=== PATIENT | female | born 1965 | race Caucasian/White ===

== ENCOUNTER 2020-01-06 00:18 | Inpatient (IN) | payer MEDICARE ==
[2020-01-06] MEDS ORDERED: NALOXONE HCL INJ 2 MG/2 ML DISP.SYRIN ONE (00:22)
[2020-01-06] MEDS ORDERED: NALOXONE HCL INJ/PF 0.4 MG/1 ML SDV IV ONE (00:40)
[2020-01-06] MEDS ORDERED: LEVETIRACETAM 1000 MG/NACL-ISO 1,000 MG/100 ML RTUPB IV ONE (00:41)
[2020-01-06] MEDS ORDERED: NORMAL SALINE 1000 ML 1,000 ML IV ONE ×2 (00:44→02:52)
[2020-01-06] MEDS ORDERED: DEXTROSE 5%-WATER 250 ML with NOREPINEPHRINE BITARTRATE 4 MG IV PRN ×2 (01:41)
--- NOTE | 2020-01-06 01:45 | ER Document Report ---
Entered by YANICK GUADALUPE SCRIBE 01/06/20 0035 Acting as scribe for:PRATIK DIAZ IV, MD ED General - General Chief Complaint: Altered Mental Status Stated Complaint: ALTERED MENTAL STATUS Mode of Arrival: Medic Information source: Patient, Emergency Med Personnel Notes: This 54 year old female patient brought in by EMS presents to the ED today with complaints of altered mental status and unresponsiveness that occurred x45 minutes prior to arrival. EMS reports that the patient's found the patient unresponsive on the toilet and upon their arrival, the patient was on the couch pale and diaphoretic. EMS states that the patient initially had respirations of 8, heart rate in the 60s, and that they were unable to palpate a blood pressure. EMS reports that they administered 6 mcg Levophed initially, then increased it to 10 mcg x5 minutes prior to arrival. EMS reports incontin ence of bladder and bowel, slurred speech, and sluggish pupils. EMS state that the patient's was a poor historian and noted that the patient had a "kidney disorder". EMS reports that the patient took her nighttime medications as well as her blood pressure medications. Patient had x3 full bottles of Keppra in a bag of medications, one of them was filled in May 2019. Patient states that she missed a couple of doses of Keppra. Patient does report a history of seizures with the last one taking place x1-2 years ago. Patient also reports diarrhea for the past x2 days. Patient denies any recent travel, recent illness, or exposure to anyone suspected of COVID-19. TRAVEL OUTSIDE OF THE [place] IN LAST 30 DAYS: No - Related Data Allergies/Adverse Reactions: No Known Allergies Allergy (Unverified 01/06/20 01:39) Home Medications: keppra, donepezil, pravastatin, omeprazole, asa, lisinopril, carvedilol, clonazepam, zofran, metformin Past Medical History - General Information source: Patient - Social History Smoking Status: Current Every Day Smoker Cigarette use (# per day): Yes Chew tobacco use (# tins/day): No Smoking Education Provided: No Family History: Reviewed & Not Pertinent Patient has suicidal ideation: No Patient has homicidal ideation: No - Medical History Medical History: Other - Back fx - Past Medical History Cardiac Medical History: Reports: Hx Hypercholesterolemia, Hx Hypertension Neurological Medical History: Reports: Hx Seizures Endocrine Medical History: Reports: Hx Diabetes Mellitus Type 2 Renal/ Medical History: Reports: Hx Renal Insufficiency - right kidney Review of Systems - Review of Systems Constitutional: See HPI. denies: Fever EENT: No symptoms reported Cardiovascular: No symptoms reported Respiratory: No symptoms reported Gastrointestinal: See HPI, Diarrhea, Fecal incontinence Genitourinary: See HPI, Incontinence Female Genitourinary: No symptoms reported Musculoskeletal: No symptoms reported Skin: No symptoms reported Hematologic/Lymphatic: No symptoms reported Neurological/Psychological: See HPI, Speech impairment - Slurred speech, Other - Altered mental status -: Yes All other systems reviewed and negative Physical Exam - Vital signs Vitals: Resp 16 01/06/20 00:19 - General General appearance: Alert - HEENT Head: Normocephalic, Atraumatic Eyes: Normal Pupils: Pinpoint - Respiratory Respiratory status: No respiratory distress Chest status: Nontender Breath sounds: Normal Chest palpation: Normal - Cardiovascular Rhythm: Regular Heart sounds: Normal auscultation Murmur: No - Abdominal Inspection: Normal Distension: No distension Bowel sounds: Normal Tenderness: Nontender - Abdomen soft Organomegaly: No organomegaly - Back Back: Normal, Nontender - Extremities General upper extremity: Normal inspection General lower extremity: Normal inspection - Neurological Neuro grossly intact: Yes Speech: Other - Slurred - Psychological Associated symptoms: Normal affect, Normal mood - Skin Skin Temperature: Warm Skin Moisture: Dry Skin Color: Normal Course - Re-evaluation Re-evalutation: 01/06/20 05:20 Results of ED MSE discussed with patient. All questions were answered. - Vital Signs Vital signs: Temp Pulse Resp BP Pulse Ox 97.3 F 99 16 132/84 H 98 01/06/20 01:00 01/06/20 00:27 01/06/20 02:21 01/06/20 02:21 01/06/20 02:21 - Laboratory Result Diagrams: 01/06/20 01:00 01/06/20 01:00 Laboratory results interpreted by me: 01/06/20 01/06/20 01/06/20 00:36 00:57 01:00 RDW 14.5 H Plt Count 130 L Sodium BUN Glucose POC Glucose 147 H Lactic Acid 2.9 H Total Bilirubin AST Alkaline Phosphatase Urine Protein Urine Blood Urine Nitrite (Reflex) Urine Urobilinogen Leukocyte Esterase Rfl 01/06/20 01/06/20 01:00 01:26 RDW Plt Count Sodium 135.3 L BUN 4 L Glucose 137 H POC Glucose Lactic Acid Total Bilirubin 2.1 H AST 41 H Alkaline Phosphatase 160 H Urine Protein 100 H Urine Blood MODERATE H Urine Nitrite (Reflex) POSITIVE H Urine Urobilinogen 4.0 H Leukocyte Esterase Rfl SMALL H - Diagnostic Test Radiology reviewed: Reports reviewed - EKG Interpretation by Me Additional EKG results interpreted by me: 01/06/20 05:20 EKG obtained on 01/06/2020 at 0100 hrs. was interpreted by this MD. Findings: Sinus rhythm, rate 78, normal axis, P waves proceed QRS complexes, QRS complexes appear narrow, there are no obviously visible patterns of ST segment elevation or depression present to suggest acute myocardial ischemia or infarction. Impression: Sinus rhythm with nonspecific ST segments. - Consults dr. yayo garcia Time consulted: 05:20 - dr. garcia accepted pt for admission Reason for consultation: 01/06/20 05:22 colitis, hypotension Consulted provider: will see as inpatient Critical Care Note - Critical Care Note Total time excluding time spent on procedures (mins): 120 Discharge - Discharge Clinical Impression: Acute colitis Condition: Good Disposition: ADMITTED INPATIENT Admitting Provider: Horace (Hospitalist) Unit Admitted: Telemetry I personally performed the services described in the documentation, reviewed and edited the documentation which was dictated to the scribe in my presence, and it accurately records my words and actions.
[2020-01-06 01:49] LABS: APPEARANCE,URINE SLIGHTLY-CLOUDY; BILIRUBIN,URINE NEGATIVE (NEGATIVE); COLOR,URINE AMBER; GLUCOSE, URINE NEGATIVE (NEGATIVE); KETONES,URINE NEGATIVE (NEGATIVE); PROTEIN,URINE 100 mg/dL (NEGATIVE); URINE SPECIFIC GRAVITY 1.015
[2020-01-06 01:55] LABS: URINE AMPHETAMINES SCREEN NEGATIVE; URINE BARBITURATES SCREEN NEGATIVE; URINE BENZODIAZEPINES SCREEN NEGATIVE; URINE COCAINE SCREEN NEGATIVE; URINE METHADONE SCREEN NEGATIVE; URINE PHENCYCLIDINE SCREEN NEGATIVE
[2020-01-06 02:00] LABS: URINE MARIJUANA (THC) SCREEN NEGATIVE
--- NOTE | 2020-01-06 02:16 | RADIOLOGY REPORT (SQ) ---
EXAM DESCRIPTION: CT HEAD WITHOUT IV CONTRAST COMPLETED DATE/TME: 01/06/2020 00:45 CLINICAL HISTORY: ams COMPARISON: None available TECHNIQUE: Axial CT of the head obtained from the skull apex to the skull base without contrast. FINDINGS: No acute intracranial hemorrhage identified. No mass, mass effect, shift of the midline, abnormal extra-axial fluid collection or CT evidence of acute ischemic change identified. The ventricular system and sulcal spaces are mildly enlarged compatible with mild cerebral atrophy. Scattered areas of hypodensity throughout the supratentorial white matter are nonspecific and may be related to chronic small vessel ischemic change. Mucosal thickening of the paranasal sinuses. Mastoid air cells are well aerated. No skull fracture identified. Visualized orbits and globes are unremarkable. Atherosclerotic calcification of the intracranial internal carotid arteries. IMPRESSION: 1. No acute intracranial abnormality by CT criteria. This exam was performed according to our departmental dose-optimization program, which includes automated exposure control, adjustment of the mA and/or kV according to patient size and/or use of iterative reconstruction technique.
--- NOTE | 2020-01-06 02:27 | RADIOLOGY REPORT (SQ) ---
AP Portable chest: 01/06/2020 1:25 AM CDT History: 84-year old patient with altered mental status. Comparison: None available Findings: The cardiomediastinal silhouette is normal in size. No pneumothorax is seen. No acute airspace opacities are seen. No discrete pleural effusion is apparent. Impression: No acute airspace opacities are seen.
[2020-01-06 02:33] LABS: ABSOLUTE EOSINOPHILS # (AUTO) 0.2 10^3/uL (0.0-0.6); ABSOLUTE LYMPHOCYTES (AUTO) 1.4 10^3/uL (0.5-4.7); ABSOLUTE MONOCYTES (AUTO) 0.8 10^3/uL (0.1-1.4); ABSOLUTE NEUT (AUTO) 7.8 10^3/uL (1.7-8.2); BASOPHILS % (AUTO) 0.1 % (0-2); EOSINOPHILS % (AUTO) 2.1 % (0-6); HEMATOCRIT 41.5 % (36.0-47.0); HEMOGLOBIN 14.3 g/dL (12.0-15.5); LYMPHOCYTES % (AUTO) 13.7 % (13-45); MEAN CORPUSCULAR HEMOGLOBIN 31.1 pg (27.0-33.4); MEAN CORPUSCULAR HGB CONC 34.4 g/dL (32.0-36.0); MEAN CORPUSCULAR VOLUME 90 fl (80-97); MONOCYTES % (AUTO) 7.4 % (3-13); PLATELET COUNT 130 10^3/uL (150-450); RED BLOOD COUNT 4.59 10^6/uL (3.72-5.28); RED CELL DISTRIBUTION WIDTH 14.5 % (11.5-14.0); SEGMENTED NEUTROPHILS % (AUTO) 76.7 % (42-78); TOTAL CELLS COUNTED % (AUTO) 100 %; WHITE BLOOD COUNT 10.2 10^3/uL (4.0-10.5)
[2020-01-06 02:37] LABS: ALBUMIN 3.8 g/dL (3.5-5.0); ALKALINE PHOSPHATASE 160 U/L (38-126); ANION GAP 6 (5-19); ASPARTATE AMINO TRANSFERASE 41 U/L (14-36); BILIRUBIN,TOTAL 2.1 mg/dL (0.2-1.3); BLOOD UREA NITROGEN 4 mg/dL (7-20); CALCIUM 9.2 mg/dL (8.4-10.2); CARBON DIOXIDE 30 mmol/L (22-30); CHLORIDE 99 mmol/L (98-107); GLUCOSE 137 mg/dL (75-110); POTASSIUM 3.9 mmol/L (3.6-5.0); TOTAL PROTEIN 6.7 g/dL (6.3-8.2)
[2020-01-06 02:44] LABS: ALCOHOL < 10 mg/dL (NONE DETECTED)
[2020-01-06] MEDS ORDERED: CEFTRIAXONE INJ 1000 MG VIAL IV ONE (02:52)
[2020-01-06 04:10] LABS: C DIFFICILE GDH NEGATIVE (NEGATIVE)
[2020-01-06 04:14] LABS: VENOUS BLOOD BASE EXCESS -1.7 mmol/L; VENOUS BLOOD HCO3 24.5 mmol/L (20-32); VENOUS BLOOD PCO2 47.7 mmHg (35-63); VENOUS BLOOD PH 7.33 (7.30-7.42)
--- NOTE | 2020-01-06 04:44 | RADIOLOGY REPORT (SQ) ---
CT ABDOMEN AND PELVIS WITH INTRAVENOUS CONTRAST: 01/06/2020 3:36 AM CDT HISTORY: 54-year old with concern for GI bleed. COMPARISON: None available TECHNIQUE: Axial contiguous images were obtained from the lung bases to the proximal femurs with intravenous intravenous contrast administered. Sagittal and coronal reconstructions were also obtained and reviewed. This exam was performed according to our departmental dose-optimization program, which includes automated exposure control, adjustment of the mA and/or KV according to the patient's size and/or use of iterative reconstruction technique. FINDINGS: No focal consolidative airspace opacities are seen. No discrete pleural effusion is seen. There is a 3 to 4 mm subpleural nodule at the right middle lobe on image 198. This is only partially visualized. Gastroesophageal varices are also noted. The liver has a nodular appearance, likely due to underlying hepatic cirrhosis. The main portal vein appears patent. No focal enhancing lesion is seen. The gallbladder is surgically absent. There is mild prominence of the intra and extrahepatic ducts, likely due to postcholecystectomy changes. The pancreas and adrenals are normal in size and contour. The spleen is enlarged and measures at least 14 cm in length. The kidneys demonstrate no evidence of hydronephrosis. Bladder is moderately distended, but grossly appears unremarkable. The stomach is not well distended. The small bowel loops appear unremarkable. There is nonspecific mucosal thickening noted at the transverse through rectosigmoid colon. There is also adjacent inflammatory stranding. There is some mild fluid distention of the ascending colon. This is suggestive of underlying colitis. No obvious gross contrast extravasation is seen. There is no evidence of pneumoperitoneum or free fluid. The aorta and IVC appear normal in size. No gross contrast extravasation is seen. Mild atherosclerotic calcification is seen at the abdominal aorta. There are nonspecific mildly prominent periportal and hu hepatis lymph nodes measuring up to to seven mm in short axis dimension. Review of the bone show no evidence of any suspicious lytic or blastic lesions. IMPRESSION: There is mucosal thickening involving the transverse through rectosigmoid colon with associated adjacent inflammatory stranding. This likely is due to colitis. This could be due to an infectious or less likely vascular etiology. There are findings of hepatic cirrhosis with portal hypertension with splenomegaly and gastroesophageal varices.
[2020-01-06] MEDS ORDERED: MEROPENEM 1 GM VIAL IV ONE (05:16)
[2020-01-06] MEDS ORDERED: NORMAL SALINE 500 ML IV ONE (05:19)
[2020-01-06] MEDS ORDERED: MAG HYDROX/AL HYDROX/SIMETH SUSP 30 ML UDCUP PO PRN (05:31)
[2020-01-06] MEDS ORDERED: MAGNESIUM HYDROXIDE SUSP 30 ML UDCUP PO PRN (05:31)
[2020-01-06] MEDS ORDERED: ONDANSETRON HCL INJ/PF 4 MG/2 ML SDV IV PRN ×2 (05:31→13:00)
--- NOTE | 2020-01-06 05:48 | EKG REPORT ---
SEVERITY:- BORDERLINE ECG - SINUS RHYTHM BORDERLINE PROLONGED QT INTERVAL : Confirmed by: Shania Hauser MD 06-Jan-2020 05:47:21
[2020-01-06] MEDS ORDERED: NICOTINE 21 MG/24 HR PATCH.TD24 TD PRN (05:49)
[2020-01-06] MEDS ORDERED: LORAZEPAM INJ 2 MG/1 ML VIAL IV PRN (05:49)
[2020-01-06] MEDS ORDERED: ACETAMINOPHEN 325 MG TABLET PO PRN (05:49)
[2020-01-06] MEDS ORDERED: INSULIN REG, HUMAN 100 UNIT/ML 3 ML VIAL (PYX) SUBCUT PRN (05:51)
[2020-01-06] MEDS ORDERED: DEXTROSE 50%-WATER 25 GM/50 ML DISP.SYRIN IV PRN ×2 (05:51)
[2020-01-06] MEDS ORDERED: GLUCAGON,HUMAN RECOMB 1 MG INJ IM PRN (05:51)
[2020-01-06] MEDS ORDERED: DEXTROSE 40% GEL 15 GM TUBE PO PRN ×2 (05:51)
[2020-01-06] MEDS: HEPARIN SOD (PORCINE) 5,000 UNIT/ML 1 ML VIAL SUBCUT SCH ×2 (07:04→13:57)
--- NOTE | 2020-01-06 08:10 | PDOC H&P ---
History of Present Illness Admission Date/PCP: 01/06/2020 05:20 No local PCP Patient complains of: Unresponsiveness History of Present Illness: SHILPA EDGE is a 54 year old female who presented via EMS to the emergency room with a history of an acutely altered mental status reported by her . Patient was found by her sitting on the toilet and he was unable to get her to respond to verbal or physical stimuli. He moved from the toilet to the couch where she was found by EMS upon their arrival noting that she was diaphoretic, with incontinence of bowel and bladder, slurred speech and sluggishly responsive pupils. She had a respiratory rate of 8 breaths/min with a heart rate of 60+ beats per minute and a nonpalpable blood pressure. EMS initiated treatment with 6 mcg of Levophed per minute via IV infusion this was titrated up to 10 mcg/min during her transport to the emergency room. Upon arrival to the emergency room patient was found to be more responsive and her blood pressure was adequate allowing the discontinuation of the Levophed infusion. She is amnestic for the current event, but admits that she most probably had a seizure as the circumstances are very much the same as a previous time 1 to 2 years ago when she had a seizure. She further admits to missing several doses of her Keppra recently. She further admits accompanying symptoms of diarrhea for the last 2 days with occasional small amounts of blood present with the stool. She denies other associated or accompanying signs and symptoms. She has not identified any additional aggravating or ameliorating factors for her acutely altered mental status. In the emergency room she was found to have an elevated lactic acid at 2.9 and a nitrate positive pyuria. A CT of the abdomen showed acute rectosigmoid colitis. Patient was subsequently admitted to the hospital for further evaluation and treatment. Past Medical History Cardiac Medical History: Reports: Hyperlipidema, Hypertension Denies: Coronary Artery Disease, Myocardial Infarction Pulmonary Medical History: Denies: Asthma, Chronic Obstructive Pulmonary Disease (COPD) EENT Medical History: Denies: Cataracts, Ears - Hearing aids Neurological Medical History: Reports: Seizures, Other - TIA's Denies: Hemorrhagic CVA, Ischemic CVA Endocrine Medical History: Reports: Diabetes Mellitus Type 2 Denies: Diabetes Mellitus Type 1, Hyperthyroidism, Hypothyroidism Renal/ Medical History: Reports: Other - Right kidney problem Denies: Chronic Kidney Disease, Nephrolithiasis Malignancy Medical History: Reports: None GI Medical History: Denies: Cirrhosis, Crohn's Disease, Hepatitis, Ulcerative Colitis Musculoskeltal Medical History: Denies: Arthritis, Gout Skin Medical History: Denies: Eczema, Psoriasis Psychiatric Medical History: Reports: Dementia, Tobacco Dependency Denies: Alcohol Dependency, Substance Abuse Traumatic Medical History: Reports: None Hematology: Denies: Anemia, Bleeding Tendencies Infectious Medical History: Reports: None Past Surgical History Past Surgical History: Reports: Appendectomy, Cholecystectomy, Hysterectomy, Tonsillectomy, Other - Breast reduction Social History Information Source: Patient Lives with: Spouse/Significant other Smoking Status: Current Every Day Smoker Electronic Cigarette use?: No Frequency of Alcohol Use: None Hx Recreational Drug Use: No Drugs: None Hx Prescription Drug Abuse: No - Advance Directive Resuscitation Status: Full Code Surrogate healthcare decision maker:: Antony Edge Family History Family History: CAD, CVA, Hypertension. denies: DM, Malignancy Parental Family History Reviewed: Yes Children Family History Reviewed: No Sibling(s) Family History Reviewed.: Yes Medication/Allergy Allergies/Adverse Reactions: No Known Allergies Allergy (Unverified 01/06/20 01:39) Review of Systems Constitutional: ABSENT: chills, fever(s) Eyes: ABSENT: visual disturbances, other - Eye pain Ears: ABSENT: hearing changes, other - Ear pain Nose, Mouth, and Throat: ABSENT: headache(s), sore throat Cardiovascular: ABSENT: chest pain, palpitations Respiratory: ABSENT: cough, dyspnea Gastrointestinal: PRESENT: as per HPI, diarrhea, hematochezia. ABSENT: constipation, nausea, vomiting Genitourinary: ABSENT: dysuria, hematuria Musculoskeletal: ABSENT: joint swelling, muscle weakness Integumentary: PRESENT: as per HPI, diaphoresis. ABSENT: pruritus, rash Neurological: ABSENT: confusion, convulsions, focal weakness, memory loss, syncope Psychiatric: ABSENT: anxiety, depression Endocrine: ABSENT: cold intolerance, heat intolerance, polydipsia, polyphagia, polyuria Hematologic/Lymphatic: ABSENT: easy bleeding, easy bruising Allergic/Immunologic: ABSENT: seasonal rhinorrhea Physical Exam Vital Signs: Temp Pulse Resp BP Pulse Ox 97.3 F 99 16 132/84 H 98 01/06/20 01:00 01/06/20 00:27 01/06/20 02:21 01/06/20 02:21 01/06/20 02:21 Intake & Output 01/04/20 01/05/20 01/06/20 23:59 23:59 23:59 Intake Total 1848 Balance 1848 Weight 83.9 kg General appearance: PRESENT: no acute distress, cooperative Head exam: PRESENT: atraumatic, normocephalic Eye exam: ABSENT: conjunctival injection, scleral icterus Ear exam: PRESENT: normal external ear exam. ABSENT: bleeding, drainage Mouth exam: PRESENT: dry mucosa, neck supple Neck exam: ABSENT: thyromegaly, tracheal deviation Respiratory exam: PRESENT: clear to auscultation walter, symmetrical, unlabored Cardiovascular exam: PRESENT: RRR. ABSENT: clicks, gallop, rubs Pulses: PRESENT: normal radial pulses, normal dorsalis pedis pul Vascular exam: PRESENT: normal capillary refill. ABSENT: pallor GI/Abdominal exam: PRESENT: hypoactive bowel sounds, soft. ABSENT: distended, tenderness Rectal exam: PRESENT: deferred Extremities exam: ABSENT: joint swelling, pedal edema Musculoskeletal exam: ABSENT: deformity, dislocation Neurological exam: PRESENT: alert, oriented to person, oriented to place, oriented to time, oriented to situation, CN II-XII grossly intact. ABSENT: eloise r sensory deficit Psychiatric exam: PRESENT: appropriate affect, normal mood Skin exam: PRESENT: dry, intact, warm. ABSENT: jaundice, rash, urticaria Results Laboratory Results: 01/06/20 01:00 01/06/20 01:00 01/06/20 01/06/20 01/06/20 00:57 01:00 01:00 WBC 10.2 RBC 4.59 Hgb 14.3 Hct 41.5 MCV 90 MCH 31.1 MCHC 34.4 RDW 14.5 H Plt Count 130 L Seg Neutrophils % 76.7 VBG pH VBG pCO2 VBG HCO3 VBG Base Excess Sodium 135.3 L Potassium 3.9 Chloride 99 Carbon Dioxide 30 Anion Gap 6 BUN 4 L Creatinine 0.86 Est GFR ( Amer) > 60 Glucose 137 H Lactic Acid 2.9 H Calcium 9.2 Total Bilirubin 2.1 H AST 41 H Alkaline Phosphatase 160 H Total Protein 6.7 Albumin 3.8 Urine Color Urine Appearance Urine pH Ur Specific Sherwood Urine Protein Urine Glucose (UA) Urine Ketones Urine Blood Urine RBC (Auto) Blood Type Antibody Screen 01/06/20 01/06/20 01/06/20 01:26 03:21 03:58 WBC RBC Hgb Hct MCV MCH MCHC RDW Plt Count Seg Neutrophils % VBG pH 7.33 VBG pCO2 47.7 VBG HCO3 24.5 VBG Base Excess -1.7 Sodium Potassium Chloride Carbon Dioxide Anion Gap BUN Creatinine Est GFR ( Amer) Glucose Lactic Acid Calcium Total Bilirubin AST Alkaline Phosphatase Total Protein Albumin Urine Color FERNANDA Urine Appearance SLIGHTLY-CLOUDY Urine pH 6.0 Ur Specific Sherwood 1.015 Urine Protein 100 H Urine Glucose (UA) NEGATIVE Urine Ketones NEGATIVE Urine Blood MODERATE H Urine RBC (Auto) 18 Blood Type A POSITIVE Antibody Screen NEGATIVE 01/06/20 00:57 Troponin I < 0.012 Impressions: Head CT 01/06/20 00:45 IMPRESSION: 1. No acute intracranial abnormality by CT criteria. This exam was performed according to our departmental dose-optimization program, which includes automated exposure control, adjustment of the mA and/or kV according to patient size and/or use of iterative reconstruction technique. Abdomen/Pelvis CT 01/06/20 03:18 IMPRESSION: There is mucosal thickening involving the transverse through rectosigmoid colon with associated adjacent inflammatory stranding. This likely is due to colitis. This could be due to an infectious or less likely vascular etiology. There are findings of hepatic cirrhosis with portal hypertension with splenomegaly and gastroesophageal varices. Assessment and Plan - Diagnosis (1) Seizure disorder Is this a current diagnosis for this admission?: Yes (2) Acute colitis Is this a current diagnosis for this admission?: Yes (3) Urinary tract infection Qualifiers: Urinary tract infection type: site unspecified Hematuria presence: without hematuria Qualified Code(s): N39.0 - Urinary tract infection, site not specified Is this a current diagnosis for this admission?: Yes (4) SIRS (systemic inflammatory response syndrome) Is this a current diagnosis for this admission?: Yes (5) Hyperlipidemia, unspecified Qualifiers: Hyperlipidemia type: unspecified Qualified Code(s): E78.5 - Hyperlipidemia, unspecified Is this a current diagnosis for this admission?: Yes (6) Diabetes mellitus type 2 in obese Is this a current diagnosis for this admission?: Yes - Plan Summary Summary: Patient is admitted to the medical floor where she will receive usual supportive and symptomatic cares. She will be continued on IV fluid for the next 12 hours if she is serially evaluated. Keppra will be continued initially IV 1000 mg every 12 hours but this can be converted to oral therapy at any time. Ativan 2 mg IV every 2 hours as needed for seizure activity will be available. Serial lactic acid levels will be obtained and the patient CBC, metabolic profiles and magnesium levels will be followed closely throughout her hospital course. Patient's vital signs will be observed closely and any sign of sepsis will be addressed immediately. Patient will initially be treated with meropenem 1000 mg IV every 8 hours pending culture results. A surgical consultation or gastroenterology consultation may be obtained at the discretion of the daytime hospitalist. Patient's usual medications will be resumed once her medication list has been verified and reconciled. Before meals and at bedtime Accu-Cheks will be performed and sliding scale insulin to be administered for hyperglycemia with a hypoglycemic protocol in place. Stool culture for pathogens is ordered, Stool C. Diff is also ordered. Patient will be placed on a cardiac and diabetic restricted diet. Smoking cessation is advised and counseled briefly at the bedside. Patient is aware that she has a nicotine replacement patch available for her use, if desired. - Time Time Spent with patient: 15-24 minutes Smoking Cessation Education: 3 to 10 minutes Medications reviewed and adjusted accordingly: Yes Anticipated discharge: Home - Inpatient Certification Based on my medical assessment, after consideration of the patient's comorbidities, presenting symptoms, or acuity I expect that the services needed warrant INPATIENT care.: Yes I certify that my determination is in accordance with my understanding of Medicare's requirements for reasonable and necessary INPATIENT services [42 CFR 412.3e].: Yes Medical Necessity: Need Close Monitoring Due to Risk of Patient Decompensation, Need For IV Fluids, Need For Continuous Telemetry Monitoring, Need for Neurological Checks, Need for IV Antibiotics, Risk of Complication if Not Cared For in Hospital
[2020-01-06] MEDS: RINGERS SOLUTION,LACTATED 1,000 ML IV PRN ×2 (08:40→14:18)
[2020-01-06 09:36] LABS: ABSOLUTE LYMPHOCYTES (AUTO) 0.9 10^3/uL (0.5-4.7); ABSOLUTE MONOCYTES (AUTO) 0.5 10^3/uL (0.1-1.4); ABSOLUTE NEUT (AUTO) 7.2 10^3/uL (1.7-8.2); BASOPHILS % (AUTO) 0.1 % (0-2); EOSINOPHILS % (AUTO) 0.5 % (0-6); HEMATOCRIT 37.4 % (36.0-47.0); HEMOGLOBIN 12.8 g/dL (12.0-15.5); LYMPHOCYTES % (AUTO) 10.5 % (13-45); MEAN CORPUSCULAR HEMOGLOBIN 30.6 pg (27.0-33.4); MEAN CORPUSCULAR HGB CONC 34.2 g/dL (32.0-36.0); MEAN CORPUSCULAR VOLUME 89 fl (80-97); MONOCYTES % (AUTO) 5.3 % (3-13); PLATELET COUNT 100 10^3/uL (150-450); RED BLOOD COUNT 4.19 10^6/uL (3.72-5.28); SEGMENTED NEUTROPHILS % (AUTO) 83.6 % (42-78); TOTAL CELLS COUNTED % (AUTO) 100 %; WHITE BLOOD COUNT 8.7 10^3/uL (4.0-10.5)
[2020-01-06 10:00] LABS: ANION GAP 7 (5-19); BLOOD UREA NITROGEN 6 mg/dL (7-20); CALCIUM 8.4 mg/dL (8.4-10.2); CARBON DIOXIDE 28 mmol/L (22-30); CHLORIDE 104 mmol/L (98-107); GLUCOSE 143 mg/dL (75-110); POTASSIUM 3.9 mmol/L (3.6-5.0)
[2020-01-06] MEDS: FAMOTIDINE 20 MG TABLET PO SCH ×2 (10:56→21:33)
[2020-01-06] MEDS: LEVETIRACETAM 1000 MG/NACL-ISO 1,000 MG/100 ML RTUPB IV SCH ×2 (10:57→21:33)
[2020-01-06] MEDS: DOCUSATE SODIUM 100 MG CAPSULE PO SCH ×2 (10:57→17:55)
[2020-01-06] MEDS ORDERED: CYCLOBENZAPRINE HCL 10 MG TABLET PO PRN (12:32)
--- NOTE | 2020-01-06 12:44 | Progress Note ---
Provider Note Provider Note: Patient admitted after midnight. According to the chart and the patient she had an episode of being unresponsive using the bathroom this morning early. Is been incontinent of bowel and bladder. According to the patient she had a similar episode about a year ago. Noticed that patient is on several pain medications and several anxiolytics. Patient also admits to 2 days of diarrhea and possibly missing doses of her Keppra. Most the patient's home meds were resumed with the exception of her Butrans patch. Labs are basically unremarkable although her urine does appear to be possibly affected with positive nitrates positive leukocytes moderate blood C. difficile is negative Blood cultures and urine cultures are pending Patient was put back on her Keppra For her colitis which was diagnosed by CT scan in 2 days of diarrhea was placed on meropenem and pending culture results, by the referral nurse Patient appears stable in no distress
[2020-01-06] MEDS ORDERED: MEROPENEM 1 GM VIAL IV SCH (14:00)
[2020-01-06] MEDS: HYDROCODONE/ACETAMINOPHEN 10-325 MG TABLET PO PRN ×2 (14:17→21:51)
[2020-01-06] MEDS: MEROPENEM 1 GM in NORMAL SALINE 50 ML IV SCH ×2 (14:18→21:35)
[2020-01-06 15:38] LABS: INTERNATIONAL RATION (INR) 1.46; PROTHROMBIN TIME 17.9 SEC (11.4-15.4)
[2020-01-06 15:39] LABS: PARTIAL THROMBOPLASTIN TIME 39.4 SEC (23.5-35.8)
[2020-01-06] MEDS: GABAPENTIN 400 MG CAPSULE PO SCH (17:56)
[2020-01-06] MEDS: CLONAZEPAM 1 MG TABLET PO SCH (17:56)
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
[2020-01-06] MEDS: PREDNISONE 20 MG TABLET PO SCH (19:47)
[2020-01-06] MEDS: DONEPEZIL HCL 5 MG TABLET PO SCH (21:32)
[2020-01-06] MEDS: CARVEDILOL 12.5 MG TABLET PO SCH (21:33)
[2020-01-06] MEDS: VALACYCLOVIR HCL 500 MG TABLET PO SCH (21:51)
[2020-01-06] MEDS: PRAVASTATIN 10 MG PO SCH (21:52)
[2020-01-06] MEDS ORDERED: (PENDING PHARMACY ID) (Donepezil Hcl [Donepezil Hcl] 10 MG) PO SCH (22:00)
[2020-01-06] MEDS ORDERED: (PENDING PHARMACY ID) (Pravastatin Sodium [Pravastatin Sodium] 10 MG) PO SCH (22:00)
[2020-01-07] MEDS: GABAPENTIN 400 MG CAPSULE PO SCH ×5 (01:00→23:35)
[2020-01-07] MEDS: CLONAZEPAM 1 MG TABLET PO SCH ×5 (01:00→23:35)
[2020-01-07] MEDS: BUPROPION HCL 100 MG TABLET PO SCH ×3 (06:20→21:31)
[2020-01-07] MEDS: VALACYCLOVIR HCL 500 MG TABLET PO SCH ×3 (06:21→21:30)
[2020-01-07 06:22] LABS: HEMATOCRIT 31.2 % (36.0-47.0); MEAN CORPUSCULAR HEMOGLOBIN 30.6 pg (27.0-33.4); MEAN CORPUSCULAR VOLUME 90 fl (80-97); RED BLOOD COUNT 3.48 10^6/uL (3.72-5.28); RED CELL DISTRIBUTION WIDTH 14.2 % (11.5-14.0); WHITE BLOOD COUNT 3.3 10^3/uL (4.0-10.5)
[2020-01-07] MEDS: MEROPENEM 1 GM in NORMAL SALINE 50 ML IV SCH ×3 (06:22→21:33)
[2020-01-07 06:44] LABS: HEMOGLOBIN 10.6 g/dL (12.0-15.5); PLATELET COUNT 69 10^3/uL (150-450)
[2020-01-07 06:49] LABS: ALBUMIN 2.8 g/dL (3.5-5.0); ALKALINE PHOSPHATASE 82 U/L (38-126); ANION GAP 5 (5-19); ASPARTATE AMINO TRANSFERASE 29 U/L (14-36); BILIRUBIN,DIRECT 0.3 mg/dL (0.0-0.4); BILIRUBIN,TOTAL 0.4 mg/dL (0.2-1.3); BLOOD UREA NITROGEN 6 mg/dL (7-20); CALCIUM 8.4 mg/dL (8.4-10.2); CARBON DIOXIDE 28 mmol/L (22-30); CHLORIDE 104 mmol/L (98-107); CHOLESTEROL 102.94 mg/dL (0-200); GLUCOSE 215 mg/dL (75-110); POTASSIUM 3.6 mmol/L (3.6-5.0); TOTAL PROTEIN 5.3 g/dL (6.3-8.2); TRIGLYCERIDES 62 mg/dL (<150)
[2020-01-07 07:01] LABS: DIRECT LDL 68 mg/dL (<100)
[2020-01-07] MEDS: LEVALBUTEROL HCL NEB 0.63 MG/3 ML AMPUL NEB PRN (08:38)
[2020-01-07] MEDS ORDERED: (PENDING PHARMACY ID) (Bupropion Hcl [Bupropion Xl] 300 MG) PO SCH (10:00)
[2020-01-07] MEDS: PREDNISONE 20 MG TABLET PO SCH (10:33)
[2020-01-07] MEDS: FAMOTIDINE 20 MG TABLET PO SCH ×2 (10:33→21:33)
[2020-01-07] MEDS: LISINOPRIL 10 MG TABLET PO SCH (10:33)
[2020-01-07] MEDS: DOCUSATE SODIUM 100 MG CAPSULE PO SCH ×2 (10:33→17:10)
[2020-01-07] MEDS: LEVETIRACETAM 1000 MG/NACL-ISO 1,000 MG/100 ML RTUPB IV SCH ×2 (10:34→21:33)
[2020-01-07] MEDS: HYDROCODONE/ACETAMINOPHEN 10-325 MG TABLET PO PRN ×2 (13:45→20:10)
--- NOTE | 2020-01-07 14:42 | PDOC PROGRESS REPORT ---
Subjective Progress Note for:: 01/07/20 Subjective:: No adverse events overnight. No new complaints. She said the last time she had a bowel movement looked like there was a blood clot in it but she is not having any ongoing bleeding. The last colonoscopy she had was approximately 5 years ago. She does not remember anything abnormal about it. Reason For Visit: ALTERED MENTAL STATUS WITH LETHARGY,SEIZURE DISORD Physical Exam Vital Signs: Temp Pulse Resp BP Pulse Ox 98.4 F 92 18 148/74 H 100 01/07/20 12:02 01/07/20 12:02 01/07/20 12:02 01/07/20 12:02 01/07/20 12:02 Intake & Output 01/06/20 01/07/20 01/08/20 06:59 06:59 06:59 Intake Total 2648 3866 150 Balance 2648 3866 150 Weight 83.9 kg 78.3 kg General appearance: PRESENT: no acute distress, cooperative, disheveled Teeth exam: PRESENT: edentulous Respiratory exam: PRESENT: clear to auscultation walter, symmetrical, unlabored. ABSENT: accessory muscle use, chest wall tenderness, crackles, prolonged expiratory phas, retraction, rhonchi, tachypnea, wheezes Cardiovascular exam: PRESENT: RRR, +S1, +S2 Pulses: PRESENT: normal carotid pulses Vascular exam: PRESENT: normal capillary refill GI/Abdominal exam: PRESENT: normal bowel sounds, soft. ABSENT: distended, guarding, rebound, tenderness Extremities exam: ABSENT: clubbing, pedal edema Musculoskeletal exam: PRESENT: normal inspection. ABSENT: deformity Neurological exam: PRESENT: alert, awake, oriented to person, oriented to place, oriented to situation Psychiatric exam: PRESENT: appropriate affect, normal mood Skin exam: PRESENT: dry, warm Results Laboratory Results: 01/07/20 05:40 01/07/20 05:40 01/06/20 01/07/20 01/07/20 15:11 05:40 05:40 WBC 3.3 L RBC 3.48 L Hgb 10.6 L D Hct 31.2 L MCV 90 MCH 30.6 MCHC 34.0 RDW 14.2 H Plt Count 69 L Sodium 136.8 L Potassium 3.6 Chloride 104 Carbon Dioxide 28 Anion Gap 5 BUN 6 L Creatinine 0.57 Est GFR ( Amer) > 60 Glucose 215 H Lactic Acid 2.0 Calcium 8.4 Magnesium 1.6 Total Bilirubin 0.4 AST 29 Alkaline Phosphatase 82 Total Protein 5.3 L Albumin 2.8 L Triglycerides 62 Cholesterol 102.94 LDL Cholesterol Direct 68 VLDL Cholesterol 12.0 HDL Cholesterol 32 L TSH 01/07/20 05:40 WBC RBC Hgb Hct MCV MCH MCHC RDW Plt Count Sodium Potassium Chloride Carbon Dioxide Anion Gap BUN Creatinine Est GFR ( Amer) Glucose Lactic Acid Calcium Magnesium Total Bilirubin AST Alkaline Phosphatase Total Protein Albumin Triglycerides Cholesterol LDL Cholesterol Direct VLDL Cholesterol HDL Cholesterol TSH 0.25 L 01/06/20 01/06/20 01/06/20 00:57 07:25 12:09 Troponin I < 0.012 < 0.012 < 0.012 01/06/20 17:01 Troponin I < 0.012 Impressions: Head CT 01/06/20 00:45 IMPRESSION: 1. No acute intracranial abnormality by CT criteria. This exam was performed according to our departmental dose-optimization program, which includes automated exposure control, adjustment of the mA and/or kV according to patient size and/or use of iterative reconstruction technique. Abdomen/Pelvis CT 01/06/20 03:18 IMPRESSION: There is mucosal thickening involving the transverse through rectosigmoid colon with associated adjacent inflammatory stranding. This likely is due to colitis. This could be due to an infectious or less likely vascular etiology. There are findings of hepatic cirrhosis with portal hypertension with splenomegaly and gastroesophageal varices. Assessment and Plan - Diagnosis (1) Colitis presumed infectious Is this a current diagnosis for this admission?: Yes Plan: She is on meropenem. She seems to be responding. Her diarrhea has decreased. Cultures have been negative. (2) Acute lower GI bleeding Is this a current diagnosis for this admission?: Yes Plan: She has had some blood loss that cannot be entirely attributed to IV fluids. Because of her colitis, she will probably need to be evaluated endoscopically as an outpatient once her colitis is resolved. (3) Diabetes mellitus type 2 in obese Is this a current diagnosis for this admission?: Yes Plan: Continue consistent carbohydrate diet with sliding scale insulin (4) Seizure disorder Is this a current diagnosis for this admission?: Yes Plan: Continue Keppra (5) Urinary tract infection Qualifiers: Urinary tract infection type: site unspecified Hematuria presence: without hematuria Qualified Code(s): N39.0 - Urinary tract infection, site not specified Is this a current diagnosis for this admission?: Yes Plan: She is on meropenem, but her urine culture is negative thus far. - Plan Summary Summary: Patient is admitted to the medical floor where she will receive usual supportive and symptomatic cares. She will be continued on IV fluid for the next 12 hours if she is serially evaluated. Keppra will be continued initially IV 1000 mg every 12 hours but this can be converted to oral therapy at any time. Ativan 2 mg IV every 2 hours as needed for seizure activity will be available. Serial lactic acid levels will be obtained and the patient CBC, metabolic profiles and magnesium levels will be followed closely throughout her hospital course. Patient's vital signs will be observed closely and any sign of sepsis will be addressed immediately. Patient will initially be treated with meropenem 1000 mg IV every 8 hours pending culture results. A surgical consultation or gastroenterology consultation may be obtained at the discretion of the daytime hospitalist. Patient's usual medications will be resumed once her medication list has been verified and reconciled. Before meals and at bedtime Accu-Cheks will be performed and sliding scale insulin to be administered for hyperglycemia with a hypoglycemic protocol in place. Stool culture for pathogens is ordered, Stool C. Diff is also ordered. Patient will be placed on a cardiac and diabetic restricted diet. Smoking cessation is advised and counseled briefly at the bedside. Patient is aware that she has a nicotine replacement patch available for her use, if desired. - Time Time Spent with patient: 15-24 minutes
[2020-01-07] MEDS: PRAVASTATIN 10 MG PO SCH (21:29)
[2020-01-07] MEDS: CARVEDILOL 12.5 MG TABLET PO SCH (21:31)
[2020-01-07] MEDS: DONEPEZIL HCL 5 MG TABLET PO SCH (21:33)
[2020-01-08] MEDS: HYDROCODONE/ACETAMINOPHEN 10-325 MG TABLET PO PRN ×2 (04:42→11:28)
[2020-01-08] MEDS: VALACYCLOVIR HCL 500 MG TABLET PO SCH (05:46)
[2020-01-08] MEDS: GABAPENTIN 400 MG CAPSULE PO SCH ×2 (05:49→11:28)
[2020-01-08] MEDS: MEROPENEM 1 GM in NORMAL SALINE 50 ML IV SCH (05:49)
[2020-01-08] MEDS: BUPROPION HCL 100 MG TABLET PO SCH (05:50)
[2020-01-08] MEDS: CLONAZEPAM 1 MG TABLET PO SCH ×2 (05:50→11:28)
[2020-01-08 05:59] LABS: HEMATOCRIT 31.2 % (36.0-47.0); HEMOGLOBIN 10.9 g/dL (12.0-15.5); MEAN CORPUSCULAR HEMOGLOBIN 31.3 pg (27.0-33.4); MEAN CORPUSCULAR HGB CONC 35.1 g/dL (32.0-36.0); MEAN CORPUSCULAR VOLUME 89 fl (80-97); RED CELL DISTRIBUTION WIDTH 14.6 % (11.5-14.0)
[2020-01-08 06:18] LABS: PLATELET COUNT 84 10^3/uL (150-450); WHITE BLOOD COUNT 6.8 10^3/uL (4.0-10.5)
[2020-01-08] MEDS: FAMOTIDINE 20 MG TABLET PO SCH (10:16)
[2020-01-08] MEDS: DOCUSATE SODIUM 100 MG CAPSULE PO SCH (10:17)
[2020-01-08] MEDS: PREDNISONE 20 MG TABLET PO SCH (10:17)
[2020-01-08] MEDS: LEVETIRACETAM 1000 MG/NACL-ISO 1,000 MG/100 ML RTUPB IV SCH (10:21)
[2020-01-08] MEDS: LISINOPRIL 10 MG TABLET PO SCH (10:22)
[2020-01-08 10:34] VITALS: BP 124/88
[2020-01-08] MEDS: LEVALBUTEROL HCL NEB 0.63 MG/3 ML AMPUL NEB PRN (11:33)
--- NOTE | 2020-01-08 16:16 | PDOC DISCHARGE SUMMARY ---
Impression - Admit/DC Date/PCP Admission Date/Primary Care Provider: 01/06/20 05:58 Discharge Date: 01/08/20 - Discharge Diagnosis (1) Colitis presumed infectious Is this a current diagnosis for this admission?: Yes (2) Acute lower GI bleeding Is this a current diagnosis for this admission?: Yes (3) Diabetes mellitus type 2 in obese Is this a current diagnosis for this admission?: Yes (4) Seizure disorder Is this a current diagnosis for this admission?: Yes (5) Urinary tract infection Is this a current diagnosis for this admission?: Yes - Assessment Summary: Patient is admitted to the medical floor where she will receive usual supportive and symptomatic cares. She will be continued on IV fluid for the next 12 hours if she is serially evaluated. Keppra will be continued initially IV 1000 mg every 12 hours but this can be converted to oral therapy at any time. Ativan 2 mg IV every 2 hours as needed for seizure activity will be available. Serial lactic acid levels will be obtained and the patient CBC, metabolic profiles and magnesium levels will be followed closely throughout her hospital course. Patient's vital signs will be observed closely and any sign of sepsis will be addressed immediately. Patient will initially be treated with meropenem 1000 mg IV every 8 hours pending culture results. A surgical consultation or gastroenterology consultation may be obtained at the discretion of the daytime hospitalist. Patient's usual medications will be resumed once her medication list has been verified and reconciled. Before meals and at bedtime Accu-Cheks will be performed and sliding scale insulin to be administered for hyperglycemia with a hypoglycemic protocol in place. Stool culture for pathogens is ordered, Stool C. Diff is also ordered. Patient will be placed on a cardiac and diabetic restricted diet. Smoking cessation is advised and counseled briefly at the bedside. Patient is aware that she has a nicotine replacement patch available for her use, if desired. - Additional Information Resuscitation Status: Full Code Discharge Diet: Cardiac Discharge Activity: Activity As Tolerated Referrals: DOMONIQUE ESPINOZA MD [COMMUNITY BASED STAFF] - (left message for Adela (10:52)) BETI PEDROZA MD [ACTIVE STAFF] - (2 weeks for colonoscopy (lower GI bleeding)) Prescriptions: Ciprofloxacin HCl [Cipro 500 mg Tablet] 500 mg PO BID #20 tablet Metronidazole [Flagyl 500 mg Tablet] 500 mg PO TID #30 tablet Home Medications: Buprenorphine [Butrans] 20 mcg TOP TU@1000 01/06/20 Bupropion HCl [Bupropion Xl] 300 mg PO DAILY 01/06/20 Carvedilol [Coreg 12.5 mg Tablet] 12.5 mg PO QHS 01/06/20 Clonazepam [Klonopin 1 mg Tablet] 1 mg PO QID 01/06/20 Cyclobenzaprine HCl [Flexeril 10 mg Tablet] 10 mg PO TIDP PRN 01/06/20 Donepezil HCl 10 mg PO QHS 01/06/20 Gabapentin [Neurontin] 800 mg PO QID 01/06/20 Hydrocodone/Acetaminophen [[place] 10-325 mg Tablet] 1 tab PO Q6HP PRN 01/06/20 Lisinopril [Prinivil 10 mg Tablet] 10 mg PO DAILY 01/06/20 Omeprazole 40 mg PO QAM 01/06/20 Pravastatin Sodium 10 mg PO QHS 01/06/20 Ciprofloxacin HCl [Cipro 500 mg Tablet] 500 mg PO BID #20 tablet 01/08/20 Metronidazole [Flagyl 500 mg Tablet] 500 mg PO TID #30 tablet 01/08/20 History of Present Illiness History of Present Illness: SHILPA EDGE is a 54 year old female who presented via EMS to the emergency room with a history of an acutely altered mental status reported by her . Patient was found by her sitting on the toilet and he was unable to get her to respond to verbal or physical stimuli. He moved from the toilet to the couch where she was found by EMS upon their arrival noting that she was diaphoretic, with incontinence of bowel and bladder, slurred speech and sluggishly responsive pupils. She had a respiratory rate of 8 breaths/min with a heart rate of 60+ beats per minute and a nonpalpable blood pressure. EMS initiated treatment with 6 mcg of Levophed per minute via IV infusion this was titrated up to 10 mcg/min during her transport to the emergency room. Upon arrival to the emergency room patient was found to be more responsive and her blood pressure was adequate allowing the discontinuation of the Levophed infusio n. She is amnestic for the current event, but admits that she most probably had a seizure as the circumstances are very much the same as a previous time 1 to 2 years ago when she had a seizure. She further admits to missing several doses of her Keppra recently. She further admits accompanying symptoms of diarrhea for the last 2 days with occasional small amounts of blood present with the stool. She denies other associated or accompanying signs and symptoms. She has not identified any additional aggravating or ameliorating factors for her acutely altered mental status. In the emergency room she was found to have an elevated lactic acid at 2.9 and a nitrate positive pyuria. A CT of the abdomen showed acute rectosigmoid colitis. Patient was subsequently admitted to the hospital for further evaluation and treatment. Hospital Course Hospital Course: She responded to IV fluid boluses. She was still having some clots coming out of her stool and her hemoglobin did trend down but it stabilized at 10-1/2-11. A lot of the decline was probably due to fluid. She was treated with antibiotics for a colitis which was seen on CT scan. She did show improvement. Stool was negative for C. difficile. She will finish up a course of antibiotics at home. We have decided to do a colonoscopy as an outpatient. She has an appointment getting scheduled with Dr. Pedroza. Given the current situation, she was encouraged to return to the ER if she had a recurrence of bright red blood per rectum that was sustained. She verbalized her understanding. Her labs and examination were reassuring and she was discharged in stable condition. Physical Exam Vital Signs: Temp Pulse Resp BP Pulse Ox 97.6 F 73 15 124/88 H 99 01/08/20 10:31 01/08/20 11:33 01/08/20 11:33 01/08/20 10:31 01/08/20 11:33 Intake & Output 01/07/20 01/08/20 01/09/20 06:59 06:59 06:59 Intake Total 3866 2907 100 Balance 3866 2907 100 Weight 78.3 kg 82.3 kg General appearance: PRESENT: no acute distress, cooperative, disheveled Teeth exam: PRESENT: edentulous Respiratory exam: PRESENT: clear to auscultation walter, symmetrical, unlabored. ABSENT: accessory muscle use, chest wall tenderness, crackles, prolonged expiratory phas, retraction, rhonchi, tachypnea, wheezes Cardiovascular exam: PRESENT: RRR, +S1, +S2 Pulses: PRESENT: normal carotid pulses Vascular exam: PRESENT: normal capillary refill GI/Abdominal exam: PRESENT: normal bowel sounds, soft. ABSENT: distended, guarding, rebound, tenderness Extremities exam: ABSENT: clubbing, pedal edema Musculoskeletal exam: PRESENT: normal inspection. ABSENT: deformity Neurological exam: PRESENT: alert, awake, oriented to person, oriented to place, oriented to situation Psychiatric exam: PRESENT: appropriate affect, normal mood Skin exam: PRESENT: dry, warm Results Laboratory Results: WBC 6.8 10^3/uL (4.0-10.5) D 01/08/20 04:59 RBC 3.50 10^6/uL (3.72-5.28) L 01/08/20 04:59 Hgb 10.9 g/dL (12.0-15.5) L 01/08/20 04:59 Hct 31.2 % (36.0-47.0) L 01/08/20 04:59 MCV 89 fl (80-97) 01/08/20 04:59 MCH 31.3 pg (27.0-33.4) 01/08/20 04:59 MCHC 35.1 g/dL (32.0-36.0) 01/08/20 04:59 RDW 14.6 % (11.5-14.0) H 01/08/20 04:59 Plt Count 84 10^3/uL (150-450) L 01/08/20 04:59 Lymph % (Auto) 10.5 % (13-45) L 01/06/20 09:17 Crowley % (Auto) 5.3 % (3-13) 01/06/20 09:17 Eos % (Auto) 0.5 % (0-6) 01/06/20 09:17 Baso % (Auto) 0.1 % (0-2) 01/06/20 09:17 Absolute Neuts (auto) 7.2 10^3/uL (1.7-8.2) 01/06/20 09:17 Absolute Lymphs (auto) 0.9 10^3/uL (0.5-4.7) 01/06/20 09:17 Absolute Monos (auto) 0.5 10^3/uL (0.1-1.4) 01/06/20 09:17 Absolute Eos (auto) 0.0 10^3/uL (0.0-0.6) 01/06/20 09:17 Absolute Basos (auto) 0.0 10^3/uL (0.0-0.2) 01/06/20 09:17 Seg Neutrophils % 83.6 % (42-78) H 01/06/20 09:17 PT 17.9 SEC (11.4-15.4) H 01/06/20 15:11 INR 1.46 01/06/20 15:11 APTT 39.4 SEC (23.5-35.8) H 01/06/20 15:11 VBG pH 7.33 (7.30-7.42) 01/06/20 03:58 VBG pCO2 47.7 mmHg (35-63) 01/06/20 03:58 VBG HCO3 24.5 mmol/L (20-32) 01/06/20 03:58 VBG Base Excess -1.7 mmol/L 01/06/20 03:58 Sodium 136.8 mmol/L (137-145) L 01/07/20 05:40 Potassium 3.6 mmol/L (3.6-5.0) 01/07/20 05:40 Chloride 104 mmol/L (98-107) 01/07/20 05:40 Carbon Dioxide 28 mmol/L (22-30) 01/07/20 05:40 Anion Gap 5 (5-19) 01/07/20 05:40 BUN 6 mg/dL (7-20) L 01/07/20 05:40 Creatinine 0.57 mg/dL (0.52-1.25) 01/07/20 05:40 Est GFR ( Amer) > 60 (>60) 01/07/20 05:40 Est GFR (MDRD) Non-Af > 60 (>60) 01/07/20 05:40 Glucose 215 mg/dL (75-110) H 01/07/20 05:40 POC Glucose 104 mg/dL (70-110) 01/08/20 08:14 Hemoglobin A1c % 5.5 % (4.7-6.0) 01/07/20 05:40 Lactic Acid 2.0 mmol/L (0.7-2.1) 01/06/20 15:11 Calcium 8.4 mg/dL (8.4-10.2) 01/07/20 05:40 Magnesium 1.6 mg/dL (1.6-2.3) 01/07/20 05:40 Total Bilirubin 0.4 mg/dL (0.2-1.3) 01/07/20 05:40 Direct Bilirubin 0.3 mg/dL (0.0-0.4) 01/07/20 05:40 Neonat Total Bilirubin Not Reportable 01/07/20 05:40 Neonat Direct Bilirubin Not Reportable 01/07/20 05:40 Neonat Indirect Bili Not Reportable 01/07/20 05:40 AST 29 U/L (14-36) 01/07/20 05:40 ALT 12 U/L (<35) 01/07/20 05:40 Alkaline Phosphatase 82 U/L (38-126) 01/07/20 05:40 Troponin I < 0.012 ng/mL 01/06/20 17:01 Total Protein 5.3 g/dL (6.3-8.2) L 01/07/20 05:40 Albumin 2.8 g/dL (3.5-5.0) L 01/07/20 05:40 Triglycerides 62 mg/dL (<150) 01/07/20 05:40 Cholesterol 102.94 mg/dL (0-200) 01/07/20 05:40 LDL Cholesterol Direct 68 mg/dL (<100) 01/07/20 05:40 VLDL Cholesterol 12.0 mg/dL (10-31) 01/07/20 05:40 HDL Cholesterol 32 mg/dL (>40) L 01/07/20 05:40 TSH 0.25 uIU/mL (0.47-4.68) L 01/07/20 05:40 Urine Color FERNANDA 01/06/20 01:26 Urine Appearance SLIGHTLY-CLOUDY 01/06/20 01:26 Urine pH 6.0 (5.0-9.0) 01/06/20 01:26 Ur Specific Axson 1.015 01/06/20 01:26 Urine Protein 100 mg/dL (NEGATIVE) H 01/06/20 01:26 Urine Glucose (UA) NEGATIVE mg/dL (NEGATIVE) 01/06/20 01:26 Urine Ketones NEGATIVE mg/dL (NEGATIVE) 01/06/20 01:26 Urine Blood MODERATE (NEGATIVE) H 01/06/20 01:26 Urine Nitrite (Reflex) POSITIVE (NEGATIVE) H 01/06/20 01:26 Urine Bilirubin NEGATIVE (NEGATIVE) 01/06/20 01:26 Urine Urobilinogen 4.0 mg/dL (<2.0) H 01/06/20 01:26 Leukocyte Esterase Rfl SMALL (NEGATIVE) H 01/06/20 01:26 Urine RBC (Auto) 18 /HPF 01/06/20 01:26 U Hyaline Cast (Auto) 5 /LPF 01/06/20 01:26 Urine Bacteria (Auto) 1+ /HPF 01/06/20 01:26 Urine WBC (Reflex) > 182 /HPF 01/06/20 01:26 Squamous Epi Cells Auto 1 /HPF 01/06/20 01:26 U Non-Squamous Epis Auto 1 /HPF 01/06/20 01:26 Urine Mucus (Auto) FEW /LPF 01/06/20 01:26 Urine Ascorbic Acid NEGATIVE (NEGATIVE) 01/06/20 01:26 Stl C. Difficile GDH Ag NEGATIVE (NEGATIVE) 01/06/20 01:45 Stl C.difficile Tox A&B NEGATIVE (NEGATIVE) 01/06/20 01:45 Urine Opiates Screen UNCONFIRMED POSITIVE 01/06/20 01:26 Urine Methadone Screen NEGATIVE 01/06/20 01:26 Ur Barbiturates Screen NEGATIVE 01/06/20 01:26 Levetiracetam 34.5 ug/mL (10.0-40.0) 01/06/20 02:34 Ur Phencyclidine Scrn NEGATIVE 01/06/20 01:26 Ur Amphetamines Screen NEGATIVE 01/06/20 01:26 U Benzodiazepines Scrn NEGATIVE 01/06/20 01:26 Urine Cocaine Screen NEGATIVE 01/06/20 01:26 U Marijuana (THC) Screen NEGATIVE 01/06/20 01:26 Serum Alcohol < 10 mg/dL (NONE DETECTED) 01/06/20 01:00 Blood Type A POSITIVE 01/06/20 03:21 Antibody Screen NEGATIVE 01/06/20 03:21 01/06/20 01/06/20 01/06/20 00:57 07:25 12:09 Troponin I < 0.012 < 0.012 < 0.012 01/06/20 17:01 Troponin I < 0.012 Impressions: Head CT 01/06/20 00:45 IMPRESSION: 1. No acute intracranial abnormality by CT criteria. This exam was performed according to our departmental dose-optimization program, which includes automated exposure control, adjustment of the mA and/or kV according to patient size and/or use of iterative reconstruction technique. Abdomen/Pelvis CT 01/06/20 03:18 IMPRESSION: There is mucosal thickening involving the transverse through rectosigmoid colon with associated adjacent inflammatory stranding. This likely is due to colitis. This could be due to an infectious or less likely vascular etiology. There are findings of hepatic cirrhosis with portal hypertension with splenomegaly and gastroesophageal varices. Plan Time Spent: Greater than 30 Minutes Stroke Is this a Stroke Patient?: No Acute Heart Failure - Is this a Heart Failure Patient?: No
== END 2020-01-08 12:33 | disposition home or self-care (01) | DRG 392 ==
LOC: ER 00:18 → EH 05:58 → 3W 07:32
PROVIDERS: ADMIT Emergency Medicine; ATTEND Family Medicine
DX: A09 Infectious gastroenteritis and colitis, unspecified (principal); N39.0 Urinary tract infection, site not specified; K92.2 Gastrointestinal hemorrhage, unspecified; G40.909 Epilepsy, unspecified, not intractable, without status epilepticus; E11.9 Type 2 diabetes mellitus without complications; E66.9 Obesity, unspecified; R47.81 Slurred speech; E78.5 Hyperlipidemia, unspecified; I10 Essential (primary) hypertension; F03.90 Unspecified dementia, unspecified severity, without behavioral disturbance, psychotic disturbance, mood disturbance, and anxiety; F17.210 Nicotine dependence, cigarettes, uncomplicated; E78.00 Pure hypercholesterolemia, unspecified; Z79.899 Other long term (current) drug therapy
CPT/HCPCS: 36415; 70450; 71045; 74177; 80053; 80061; 80177; 80307; 81001; 82803; 82962; 83036; 83605; 83735; 84443; 84484; 85025; 85027; 85610; 85730; 86850; 86900; 86901; 87040; 87045; 87077; 87086; 87205; 87324; 87449; 93005; 93010; 96365; 96366; 96368; 96375; 99291; 99292; J0696; J1815; J1953; J2185; J2310; J3490; J7030; J7040; J7060; J7120; J7512; J7614